=== PATIENT | male | born 1975 | race African-American/Black ===

== ENCOUNTER 2018-06-08 14:41 | Emergency (ER) | payer OTHER ==
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
[2018-06-08 15:01] VITALS: BP 116/58; PULSE 106; TEMP 98.5; BMI 29.0
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
[2018-06-08] MEDS ORDERED: BACITRACIN 15 GM TUBE TOPICAL OINTMENT TP SCH (15:30)
[2018-06-08] MEDS ORDERED: IBUPROFEN 400 MG TABLET (FP) PO ONE ×2 (15:41→15:46)
== END 2018-06-08 16:59 | disposition left against medical advice (07) ==
LOC: JERFT 14:41
DX: S02.2XXA Fracture of nasal bones, initial encounter for closed fracture (principal); Y04.8XXA Assault by other bodily force, initial encounter; Y93.89 Activity, other specified; Y92.89 Other specified places as the place of occurrence of the external cause; Y99.8 Other external cause status; Y07.9 Unspecified perpetrator of maltreatment and neglect; I10 Essential (primary) hypertension; E11.9 Type 2 diabetes mellitus without complications; M54.5 Low back pain; Z21 Asymptomatic human immunodeficiency virus [HIV] infection status; Z87.19 Personal history of other diseases of the digestive system; Z87.09 Personal history of other diseases of the respiratory system
CPT/HCPCS: 70486-TC; 71046-TC-FY; 71101-TC-RT-FY; 99281-25

== ENCOUNTER 2020-09-16 20:01 | Emergency (ER) | payer OTHER ==
[2020-09-16] MEDS ORDERED: KETOROLAC TROMETHAMINE 30 MG/1 ML VIAL IM ONE (20:15)
--- NOTE | 2020-09-16 20:15 | PDOC ---
Rapid Medical Evaluation Time Seen by Provider: 09/16/20 20:10 Medical Evaluation: Allergies Allergy/AdvReac Type Severity Reaction Status Date / Time No Known Allergies Allergy Verified 06/08/18 14:57 09/16/20 20:10 I have performed a brief in person evaluation of this patient. CC: lower back pain and "My sugar has been high." reports [id number]'s PE: No focal findings Orders: toradol Patient will proceed to ED for further evaluation. Discharge Disposition - Diagnosis Low back pain - Referrals - Patient Instructions - Post Discharge Activity
[2020-09-16 20:20] VITALS: BP 139/82; PULSE 85; TEMP 98.3; BMI 30.3
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
[2020-09-16] MEDS ORDERED: KETOROLAC TROMETHAMINE 30 MG/1 ML VIAL ONE (20:30)
--- NOTE | 2020-09-16 20:57 | PDOC ---
History of Present Illness - General Chief Complaint: Back Pain Stated Complaint: BACK & LEG PAIN Time Seen by Provider: 09/16/20 20:10 - History of Present Illness Initial Comments: 09/16/20 20:53 44-year-old male with lower back pain posterior lateral leg radicular symptoms no loss of bowel bladder function saddle paresthesia or systemic symptoms x1 day. Patient under the care of pain management minimal relief with Percocet today prior to arrival. Past History - Medical History Allergies/Adverse Reactions: Allergies Allergy/AdvReac Type Severity Reaction Status Date / Time No Known Allergies Allergy Verified 09/16/20 20:15 Home Medications: Ambulatory Orders metFORMIN HCL [Metformin HCl] 1 tab PO DAILY 07/15/16 Oxycodone HCl/Acetaminophen [Percocet 10-325 mg Tablet] 1 tab PO TID PRN 08/04/16 Liraglutide [Victoza -] 1.8 mg SQ DAILY@0700 08/22/17 Diphenhydramine HCl [Benadryl Capsule -] 1 tab PO DAILY 08/28/18 Morphine Sulfate 1 tab PO DAILY 08/28/18 Emtricitabine/Tenofovir [Truvada -] 1 tab PO DAILY #30 tablet 04/26/19 Cyclobenzaprine HCl [Flexeril 10 mg] 10 mg PO HS PRN #10 tablet 09/16/20 Anemia: No Asthma: Yes Cancer: No Cardiac Disorders: No CVA: No COPD: No CHF: No Dementia: No Diabetes: Yes GI Disorders: Yes (hx diverticulitis 2012) Disorders: No HTN: Yes Hypercholesterolemia: No Liver Disease: No Seizures: No Thyroid Disease: No - Psycho-Social/Smoking History Smoking History: Current every day smoker Have you smoked in the past 12 months: Yes Number of Cigarettes Smoked Daily: 10 Information on smoking cessation initiated: Yes - Substance Abuse Hx (Audit-C & DAST Scrn) How often the patient has a drink containing alcohol: Never Score: In Men: 4 or > Positive; In Women: 3 or > Positive: 0 Screen Result (Pos requires Nsg. Audit-10AR): Negative In the last yr the pt used illegal drug/Rx for NonMed reason: Yes Score: Yes response is considered Positive: 1 Screen Result (Positive result requires Nsg. DAST-10): Positive Review of Systems - Review of Systems Constitutional: No: Fever : No: Incontinence Musculoskeletal: Yes: Back Pain *Physical Exam - Vital Signs Last Vital Signs Temp Pulse Resp BP Pulse Ox 98.3 F 85 18 139/82 97 09/16/20 20:12 09/16/20 20:12 09/16/20 20:12 09/16/20 20:12 09/16/20 20:12 - Physical Exam 09/16/20 20:53 Lumbar spine skin color temperature normal range of motion is slightly decreased. No midline tenderness. Moderate bilateral paralumbar musculature spasm and tenderness 5 out of 5 strength bilateral lower extremities without gross sensorimotor deficits thighs and calves are soft and nontender neurovascular intact ED Treatment Course - Medications Given in the ED: ED Medications Discontinued Medications Generic Name Dose Route Start Last Admin Trade Name Verito PRN Reason Stop Dose Admin Ketorolac Tromethamine 30 mg 09/16/20 20:15 09/16/20 20:36 Toradol Injection - IM 09/16/20 20:16 30 mg ONCE ONE Administration Medical Decision Making - Medical Decision Making 09/16/20 20:56 Patient has a history of diabetes on Percocet already with Tylenol Flexeril for home use was prescribed follow-up with pain management I have reviewed the pathophysiology with the patient. They are in agreement with the treatment plan all questions were answered to their satisfaction. Understanding for follow-up without fail was also conveyed to the patient. Again they are in agreement. Discharge - Discharge Information Problems reviewed: Yes Clinical Impression/Diagnosis: Low back pain Condition: Stable Disposition: HOME - Admission No - Follow up/Referral - Patient Discharge Instructions Additional Instructions: Please take the Flexeril before bedtime as prescribed it will make you sleepy. Return to the emergency room for worsening symptoms and without fail follow-up with your pain management doctor in 1 to 2 days for further evaluation and treatment options. - Post Discharge Activity
== END 2020-09-16 21:16 | disposition home or self-care (01) ==
LOC: JERFT 20:01 → JER 20:01 → JERFT 21:16
PROC: 3E0233Z Introduction of Anti-inflammatory into Muscle, Percutaneous Approach (ICD-10-PCS; principal; 2020-09-16)
DX: M54.5 Low back pain (principal)
CPT/HCPCS: 99284-25